=== PATIENT | male | born 1980 | race Caucasian/White ===

== ENCOUNTER 2024-03-21 00:40 | Emergency (ER) | payer MEDICAID ==
[~2024-03-21] VITALS: Ht 170.2 cm; Wt 64.0 kg
[2024-03-21 00:45] VITALS: O2SAT 97
[2024-03-21] MEDS ORDERED: ACETAMINOPHEN 1000MG/100ML 100 ML IV ONE (02:00)
[2024-03-21] MEDS ORDERED: TETANUS, DIPHTHERIA, PERTUSSIS VAC/PF 0.5ML (>10YR OLD) IM ONE (02:00)
[2024-03-21 02:38] VITALS: BP 110/70; PULSE 96; RESP 16; TEMP 36.89184; O2SAT 98
== END 2024-03-21 02:41 | disposition home or self-care (01) ==
LOC: ER 00:40
DX: S01.21XA Laceration without foreign body of nose, initial encounter (principal); S03.2XXA Dislocation of tooth, initial encounter; R55 Syncope and collapse; J45.909 Unspecified asthma, uncomplicated; F19.90 Other psychoactive substance use, unspecified, uncomplicated; Y08.89XA Assault by other specified means, initial encounter; Y93.89 Activity, other specified; Y92.89 Other specified places as the place of occurrence of the external cause; Y99.8 Other external cause status
CPT/HCPCS: 99283; J0131